=== PATIENT | female | born 2005 | race Hispanic/Latino ===

== ENCOUNTER → 2023-10-18 | Outpatient (REF) | payer OTHER ==
[2023-10-18 19:58] LABS: CHLAMYDIA DNA AMPLIFICATION NEGATIVE (NEGATIVE); GC DNA AMPLIFICATION NEGATIVE (NEGATIVE)
== END ==
LOC: M LAB REF 18:18
PROVIDERS: ATTEND Physician Assistant
DX: R30.0 Dysuria (principal)

== ENCOUNTER → 2024-07-14 | Outpatient (REF) ==
[2024-07-16 15:57] LABS: HERPES ZOSTER, VARICELLA IgG 1.06 S/CO (>=1.00)
== END ==
LOC: M LAB 15:39
PROVIDERS: ATTEND Family Medicine
DX: Z00.00 Encounter for general adult medical examination without abnormal findings (principal)

== ENCOUNTER → 2024-07-29 | Outpatient (REF) ==
[2024-08-02 13:54] LABS: QuantiFERON-TB Gold Plus POSITIVE (NEGATIVE)
== END ==
LOC: M LAB 07-25 14:51
PROVIDERS: ATTEND Family Medicine
DX: Z02.1 Encounter for pre-employment examination (principal)

== ENCOUNTER → 2024-08-03 | Outpatient (REF) | LOC: M RAD 07:59 | PROVIDERS: ATTEND Family Medicine | DX: Z00.00 Encounter for general adult medical examination without abnormal findings (principal) ==

== ENCOUNTER 2025-03-28 12:15 | Emergency (ER) | payer OTHER ==
[~2025-03-28] VITALS: Ht 167.6 cm; Wt 95.7 kg
[2025-03-28 12:19] VITALS: TEMP 96.8
[2025-03-28 13:56] LABS: APPEARANCE, URINE CLEAR (CLEAR); BACTERIA, URINE AUTO 1+ (NEGATIVE); BILIRUBIN, URINE AUTO NEGATIVE (NEGATIVE); BLOOD, URINE BLOOD NEGATIVE (NEGATIVE); GLUCOSE, URINE (UA) AUTO NEGATIVE (NEGATIVE); KETONE, URINE AUTO NEGATIVE (NEGATIVE); LEUKOCYTE ESTERASE, URINE AUTO NEGATIVE (NEGATIVE); NITRITE, URINE AUTO NEGATIVE (NEGATIVE); PROTEIN, URINE AUTO NEGATIVE (NEGATIVE); RBC, URINE AUTO 1 /HPF (0-3); SPECIFIC GRAVITY URINE AUTO 1.016 (1.002-1.035); SQUAMOUS EPITHELIAL CELL UR AU 5 /HPF (0-6); UROBILINOGEN, URINE AUTO 0.2 mg/dL (0.0-2.0); WBC, URINE AUTO 0 /HPF (0-3)
[2025-03-28 13:57] LABS: BASO # 0.0 10^3/uL (0.0-0.2); BASO % 0.4 % (0.0-1.0); EOS # 0.1 10^3/uL (0.0-0.5); EOS % 1.2 % (0.0-3.0); LYMPH # 1.9 10^3/uL (1.5-5.0); LYMPH % 18.6 % (24.0-44.0); MONO # 1.1 10^3/uL (0.0-0.8); MONO % 10.5 % (2.0-8.0); NEUTROPHILS # 7.2 10^3/uL (1.5-8.5); NEUTROPHILS % 68.9 % (36.0-66.0); PLATELET COUNT, AUTOMATED 355 10^3/uL (150-450)
[2025-03-28 14:29] LABS: ALT/SGPT 23 U/L (7.0-40); AST/SGOT 16 U/L (<34); CALCIUM LEVEL 9.2 MG/DL (8.5-10.1); CARBON DIOXIDE LEVEL 24 MMOL/L (20-31); CHLORIDE LEVEL 102 MMOL/L (98-107); CREATININE FOR GFR 0.60 MG/DL (0.55-1.30); GLOMERULAR FILTRATION RATE > 90.0 (>60); POTASSIUM SERUM 4.1 MMOL/L (3.5-5.1); SODIUM LEVEL 138 MMOL/L (136-145)
[2025-03-28 14:30] LABS: HCG, SERUM QUALITATIVE POSITIVE (NEGATIVE)
[2025-03-28 15:08] LABS: HCG, SERUM QUANTITATIVE 1998.9 MIU/ML (<4.2)
[2025-03-28 15:17] LABS: GC DNA AMPLIFICATION NEGATIVE (NEGATIVE)
[2025-03-28 20:10] VITALS: BP 117/69; O2SAT 100
[2025-03-28] MEDS ORDERED: CEPH500C PO (20:32)
== END 2025-03-28 20:27 | disposition home or self-care (01) ==
LOC: M ED 12:15
DX: Z32.01 Encounter for pregnancy test, result positive (principal); O34.81 Maternal care for other abnormalities of pelvic organs, first trimester; N83.292 Other ovarian cyst, left side; Z79.2 Long term (current) use of antibiotics; Z3A.00 Weeks of gestation of pregnancy not specified

== ENCOUNTER → 2025-03-30 | Outpatient (CLI) | payer OTHER ==
[~2025-03-30] MED LIST: CEPH500C PO
== END ==
LOC: M LAB 10:51
PROVIDERS: ATTEND Physician Assistant
DX: Z34.01 Encounter for supervision of normal first pregnancy, first trimester (principal)

== ENCOUNTER → 2025-05-12 | Outpatient (REF) | payer OTHER | LOC: M PLALAB 16:22 | PROVIDERS: ATTEND Nurse Practitioner Family | DX: Z34.80 Encounter for supervision of other normal pregnancy, unspecified trimester (principal) ==

== ENCOUNTER → 2025-05-12 | Outpatient (CLI) | payer OTHER ==
[2025-05-12 18:05] LABS: PLATELET COUNT, AUTOMATED 316 10^3/uL (150-450)
[2025-05-12 18:45] LABS: TOTAL PROTEIN,RANDOM URINE 20.1 MG/DL (0.0-14.0)
[2025-05-12 18:48] LABS: LDH LACTATE DEHYDROGENASE 157 U/L (120-246)
[2025-05-12 18:49] LABS: ALT/SGPT 17 U/L (7.0-40); AST/SGOT 13 U/L (<34); CREATININE FOR GFR 0.50 MG/DL (0.55-1.30); GLOMERULAR FILTRATION RATE > 90.0 (>60)
[2025-05-12 19:10] LABS: Trichomonas vaginalis (AMP) NOT DETECTED (NEGATIVE)
[2025-05-12 19:18] LABS: HIV 1&2 SCREEN NEGATIVE (NEGATIVE)
[2025-05-12 19:26] LABS: HEPATITIS C VIRUS ABY INDEX < 0.02 INDEX (<0.8)
[2025-05-12 19:34] LABS: GC DNA AMPLIFICATION NEGATIVE (NEGATIVE)
== END ==
LOC: M PLALAB 16:41
PROVIDERS: ATTEND Nurse Practitioner Family
DX: Z34.80 Encounter for supervision of other normal pregnancy, unspecified trimester (principal)

== ENCOUNTER → 2025-06-09 | Outpatient (REF) | payer OTHER | LOC: M PLALAB 14:35 | PROVIDERS: ATTEND Student in an Organized Health Care Education/Training Program | DX: Z53.9 Procedure and treatment not carried out, unspecified reason (principal) ==

== ENCOUNTER → 2025-06-09 | Outpatient (CLI) | payer OTHER | LOC: M PLALAB 14:54 | PROVIDERS: ATTEND Student in an Organized Health Care Education/Training Program | DX: Z34.80 Encounter for supervision of other normal pregnancy, unspecified trimester (principal) ==

== ENCOUNTER 2025-07-01 23:15 | Emergency (ER) | payer OTHER ==
[~2025-07-01] VITALS: Ht 165.1 cm; Wt 97.3 kg
[2025-07-01 23:16] VITALS: BP 132/78; TEMP 98.5; O2SAT 100
[2025-07-02 00:17] LABS: BASO # 0.0 10^3/uL (0.0-0.2); BASO % 0.3 % (0.0-1.0); EOS # 0.1 10^3/uL (0.0-0.5); EOS % 1.2 % (0.0-3.0); LYMPH # 2.6 10^3/uL (1.5-5.0); LYMPH % 21.6 % (24.0-44.0); MONO # 0.9 10^3/uL (0.0-0.8); MONO % 7.9 % (2.0-8.0); NEUTROPHILS # 8.2 10^3/uL (1.5-8.5); NEUTROPHILS % 68.4 % (36.0-66.0); PLATELET COUNT, AUTOMATED 330 10^3/uL (150-450)
[2025-07-02 00:36] LABS: CALCIUM LEVEL 9.1 MG/DL (8.5-10.1); CARBON DIOXIDE LEVEL 25 MMOL/L (20-31); CHLORIDE LEVEL 103 MMOL/L (98-107); CREATININE FOR GFR 0.53 MG/DL (0.55-1.30); GLOMERULAR FILTRATION RATE > 90.0 (>60); POTASSIUM SERUM 3.9 MMOL/L (3.5-5.1); SODIUM LEVEL 139 MMOL/L (136-145)
[2025-07-02 00:37] LABS: KETONE, URINE AUTO RFX NEGATIVE (NEGATIVE); LEUKOCYTE ESTERASE UR AUTO RFX NEGATIVE (NEGATIVE); MUCUS, URINE RFX SMALL (NEGATIVE); NITRITE, URINE AUTO RFX NEGATIVE (NEGATIVE); RBC, URINE AUTO RFX 4 /HPF (0-3); SQUAM EPITHELIAL CELL UR AURFX 17 /HPF (0-6); WBC, URINE AUTO RFX 2 /HPF (0-3)
[2025-07-02 00:49] LABS: HCG, SERUM QUANTITATIVE 35590.7 MIU/ML (<4.2)
== END 2025-07-02 02:51 | disposition left against medical advice (07) ==
LOC: M ED 23:15
DX: Z53.21 Procedure and treatment not carried out due to patient leaving prior to being seen by health care provider (principal)

== ENCOUNTER → 2025-07-06 | Outpatient (CLI) | payer OTHER | LOC: M WHC 12:38 | PROVIDERS: ATTEND Student in an Organized Health Care Education/Training Program | DX: Z34.80 Encounter for supervision of other normal pregnancy, unspecified trimester (principal); Z3A.19 19 weeks gestation of pregnancy ==

== ENCOUNTER 2025-07-27 10:49 | Emergency (ER) | payer OTHER ==
[~2025-07-27] VITALS: Ht 165.1 cm; Wt 99.3 kg
[2025-07-27] MEDS ORDERED: ASPI81CH48 (11:09)
[2025-07-27] MEDS ORDERED: PRENTAB9 (11:09)
[2025-07-27 16:58] VITALS: BP 131/66; TEMP 98.4; O2SAT 99
== END 2025-07-27 17:00 | disposition home or self-care (01) ==
LOC: M ED 10:49
DX: O26.92 Pregnancy related conditions, unspecified, second trimester (principal); S90.31XA Contusion of right foot, initial encounter; W18.2XXA Fall in (into) shower or empty bathtub, initial encounter; Y92.002 Bathroom of unspecified non-institutional (private) residence as the place of occurrence of the external cause; Y93.89 Activity, other specified; Y99.9 Unspecified external cause status; Z3A.22 22 weeks gestation of pregnancy; Z79.82 Long term (current) use of aspirin; Z79.899 Other long term (current) drug therapy

== ENCOUNTER → 2025-08-10 | Outpatient (REF) | payer OTHER ==
[~2025-08-10] MED LIST changes: +ASPI81CH48; +PRENTAB9
== END ==
LOC: M WHC 16:51
PROVIDERS: ATTEND Advanced Practice Midwife
DX: Z34.82 Encounter for supervision of other normal pregnancy, second trimester (principal)

== ENCOUNTER → 2025-08-29 | Outpatient (CLI) | payer OTHER | LOC: M WHC 08:36 | PROVIDERS: ATTEND Advanced Practice Midwife | DX: Z34.82 Encounter for supervision of other normal pregnancy, second trimester (principal) ==